=== PATIENT | male | born 1990 | race Caucasian/White ===

== ENCOUNTER 2017-08-30 10:20 | Emergency (ER) | payer MEDICAID ==
[~2017-08-30] VITALS: Ht 172.7 cm; Wt 90.7 kg
[2017-08-30 10:24] VITALS: BP_SYST 150
[2017-08-30] MEDS ORDERED: levETIRAcetam 500 MG TABLET PO ONE (10:30)
[2017-08-30 11:02] LABS: BASOPHILS # (AUTO) 0.2 K/uL (0.0-0.2); BASOPHILS % (AUTO) 1.1 % (0.0-2.0); EOSINOPHILS % (AUTO) 0.3 % (0.0-4.0); HEMATOCRIT 43.9 % (36-54); HEMOGLOBIN 14.6 g/dL (14.0-18.0); LYMPHOCYTES # (AUTO) 1.1 K/uL (1.0-5.5); LYMPHOCYTES % (AUTO) 7.4 % (20.5-51.5); MEAN CORPUSCULAR HEMOGLOBIN 30 pg (27-31); MEAN CORPUSCULAR HGB CONC 33 % (32-36); MEAN CORPUSCULAR VOLUME 89 fL (79.0-98.0); MONOCYTES % (AUTO) 6.6 % (1.7-9.3); NEUTROPHILS # (AUTO) 13.2 K/uL (1.8-7.7); NEUTROPHILS % (AUTO) 84.6 % (40.0-70.0); PLATELET COUNT (AUTO) 308 K/uL (130-430); RED BLOOD CELL COUNT(AUTO) 4.93 MIL/uL (4.2-6.2); RED CELL DISTRIBUTION WIDTH 12.2 % (9.0-15.0); WHITE BLOOD COUNT (AUTO) 15.5 K/uL (4.8-10.8)
[2017-08-30 11:21] LABS: CALCIUM 9.4 mg/dL (8.4-11.0); CREATININE 0.98 mg/dL (0.55-1.30); POTASSIUM 3.7 mmol/L (3.5-5.1)
[2017-08-30 11:26] LABS: ALBUMIN 3.8 g/dL (3.4-4.8); TOTAL BILIRUBIN 0.5 mg/dL (0.0-1.0)
[2017-08-30 14:00] VITALS: BP_SYST 134
[2017-08-30] MEDS ORDERED: LORazepam 2 MG/ML VIAL IVP PRN (16:45)
[2017-08-30] MEDS ORDERED: DOCUSATE SODIUM 100 MG CAPSULE PO PRN (16:45)
[2017-08-30] MEDS ORDERED: ONDANSETRON HCL 4 MG/2 ML VIAL IVP PRN (16:45)
[2017-08-30] MEDS ORDERED: ZOLPIDEM TARTRATE 5 MG TABLET PO PRN (16:45)
[2017-08-30] MEDS ORDERED: NACL 0.9% 1,000 ML IV SCH (16:45)
[2017-08-30] MEDS ORDERED: MUPIROCIN 2% TOPICAL OINTMENT 22 GM NS PRN (16:45)
[2017-08-30] MEDS ORDERED: MAGNESIUM SULFATE 50 ML IV PRN (16:45)
[2017-08-30] MEDS ORDERED: ACETAMINOPHEN 325 MG TABLET PO PRN (16:45)
[2017-08-30] MEDS ORDERED: MORPHINE 4 MG/ML INJ. SYRINGE IVP PRN ×2 (16:45)
[2017-08-30] MEDS ORDERED: POTASSIUM CHLORIDE 20 MEQ TAB.PRT.SR PO PRN (16:45)
[2017-08-30] MEDS ORDERED: levETIRAcetam 500 MG TABLET PO SCH (21:00)
== END 2017-08-30 16:00 | disposition left against medical advice (07) ==
LOC: SED 10:20 → UNDOADMIN 14:57 → STU 14:57 → UNDODISIN 15:15 → SED 16:00
DX: G83.84 Todd's paralysis (postepileptic) (principal); R41.82 Altered mental status, unspecified; J45.909 Unspecified asthma, uncomplicated; F41.9 Anxiety disorder, unspecified
CPT/HCPCS: 36415; 70450; 80053; 85025; 93005; 99285; G0482

== ENCOUNTER 2020-03-07 11:18 | Emergency (ER) | payer MEDICAID ==
[~2020-03-07] VITALS: Ht 172.7 cm; Wt 81.6 kg
[2020-03-07 11:25] VITALS: BP_SYST 131
[2020-03-07 11:40] VITALS: BP_SYST 131
== END 2020-03-07 11:40 ==
LOC: SED 11:18
DX: F19.10 Other psychoactive substance abuse, uncomplicated (principal); F17.200 Nicotine dependence, unspecified, uncomplicated; J45.909 Unspecified asthma, uncomplicated; F41.9 Anxiety disorder, unspecified; F15.90 Other stimulant use, unspecified, uncomplicated; F11.90 Opioid use, unspecified, uncomplicated
CPT/HCPCS: 99283

== ENCOUNTER 2020-10-27 07:46 | Emergency (ER) | payer MEDICAID ==
[~2020-10-27] VITALS: Ht 172.7 cm; Wt 81.6 kg
[2020-10-27 07:51] VITALS: BP_SYST 142
--- NOTE | 2020-10-27 07:56 | NUR ---
Patient to ER bed H1 to gown for evaluation. Side rails up.
--- NOTE | 2020-10-27 08:00 | NUR ---
Pt bib [employer] for medical clearance and OK to book. No complaints at this time, pt reports h/o asthma and recent lung infection. V/S stable, no acute distress noted.
--- NOTE | 2020-10-27 08:05 | NUR ---
BRUNO Mayen at bedside examining patient.
--- NOTE | 2020-10-27 08:08 | NUR ---
Patient transported to radiology, ambulatory accompanied by staff.
--- NOTE | 2020-10-27 08:25 | NUR ---
Patient given written and verbal discharge instructions and verbalizes understanding. ER MD discussed with patient the results and treatment provided. Patient in stable condition. ID arm band removed. No prescriptions given. Patient educated on pain management and to follow up with PMD. Pain Scale 0. Opportunity for questions provided and answered. Medication side effect fact sheet provided.
[2020-10-27 08:27] VITALS: BP_SYST 142
== END 2020-10-27 08:25 | disposition home or self-care (01) ==
LOC: SED 07:46
DX: F11.23 Opioid dependence with withdrawal (principal); F10.20 Alcohol dependence, uncomplicated; Y90.0 Blood alcohol level of less than 20 mg/100 ml
CPT/HCPCS: 71045; 99283

== ENCOUNTER 2021-12-29 10:43 | Emergency (ER) | payer MEDICAID ==
[~2021-12-29] VITALS: Ht 172.7 cm; Wt 77.1 kg
--- NOTE | 2021-12-29 11:02 | NUR ---
PT BROUGHT IN BY SHERIFF ROZ ESPINO TO BOOK. PT C/O FENTANYL WITHDRAWLS FOR 1 DAY, LAST USE YESTERDAY AT 3PM. STATES GEN ABD PAIN WITH SOME NAUSEA/DIARRHEA. REPORTS HEADACHE. NO VISUAL CHANGES. DENIES HIVES. NO TREMORS NOTED.
[2021-12-29 11:03] VITALS: BP_SYST 13
--- NOTE | 2021-12-29 11:51 | NUR ---
DR BUNCH BY CHAIR FOR EXAM
[2021-12-29] MEDS ORDERED: BUPRENORPHINE HCL/NALOXONE HCL 2-0.5 MG 1 EACH TAB.SUBL SL ONE (12:00)
--- NOTE | 2021-12-29 12:27 | NUR ---
Patient given written and verbal discharge instructions and verbalizes understanding. ER MD discussed with patient the results and treatment provided. Patient in stable condition. ID arm band removed. PT LEFT WITH KENZIE CRUZ TO ADMIT.
[2021-12-29 12:55] VITALS: BP_SYST 13
== END 2021-12-29 12:55 | disposition home or self-care (01) ==
LOC: SED 10:43
DX: F11.23 Opioid dependence with withdrawal (principal); Z79.899 Other long term (current) drug therapy
CPT/HCPCS: 99283